=== PATIENT | female | born 1990 | race Caucasian/White ===

== ENCOUNTER 2017-04-15 07:11 | Emergency (ER) | payer MEDICAID ==
[2017-04-15 10:15] VITALS: BP 135/77
== END 2017-04-15 10:15 | disposition home or self-care (01) ==
LOC: ED 07:11
DX: B34.9 Viral infection, unspecified (principal)
CPT/HCPCS: 87804

== ENCOUNTER 2017-10-08 23:29 | Emergency (ER) | payer MEDICAID ==
[~2017-10-08] VITALS: Ht 162.6 cm; Wt 58.5 kg
[2017-10-08 23:42] VITALS: Ht 162.6 cm; Wt 58.5 kg
[2017-10-09 01:30] VITALS: BP 100/76
== END 2017-10-09 01:30 | disposition home or self-care (01) ==
LOC: ED 23:29
DX: J98.01 Acute bronchospasm (principal); R05 Cough; J00 Acute nasopharyngitis [common cold]; M79.1 Myalgia; R50.9 Fever, unspecified

== ENCOUNTER 2018-07-18 20:10 | Emergency (ER) | payer OTHER ==
[~2018-07-18] VITALS: Ht 160 cm; Wt 51.7 kg
[2018-07-18 21:09] VITALS: Ht 160 cm; Wt 51.7 kg
[2018-07-19 01:00] VITALS: BP 106/82
== END 2018-07-19 01:00 | disposition home or self-care (01) ==
LOC: ED 20:10
DX: M79.672 Pain in left foot (principal)

== ENCOUNTER 2018-08-21 13:15 | Emergency (ER) | payer OTHER ==
[~2018-08-21] VITALS: Ht 160 cm; Wt 53.5 kg
[2018-08-21 13:25] VITALS: Ht 160 cm; Wt 53.5 kg
[2018-08-21 14:30] LABS: BASOPHIL % 0.4 % (0-2); PLATELET COUNT 214 x10^3mcL (130-400); RED CELL DISTRIBUTION WIDTH 12.9 % (11.5-14.5)
[2018-08-21 18:16] VITALS: BP 92/72
== END 2018-08-21 17:50 | disposition home or self-care (01) ==
LOC: ED 13:15
PROVIDERS: Emergency Medicine
DX: N94.6 Dysmenorrhea, unspecified (principal)
CPT/HCPCS: 36415

== ENCOUNTER 2019-01-14 22:34 | Emergency (ER) | payer OTHER ==
[~2019-01-14] VITALS: Ht 160 cm; Wt 53.5 kg
[2019-01-14 22:35] VITALS: Ht 160 cm; Wt 53.5 kg
[2019-01-14 23:45] LABS: UA SPECIFIC GRAVITY >=1.030 (1.005-1.035); microscopic required? YES; urine erythrocyte NEGATIVE (NEGATIVE)
[2019-01-14 23:52] VITALS: BP 98/64
== END 2019-01-14 23:52 | disposition home or self-care (01) ==
LOC: ED 22:34
PROVIDERS: Emergency Medicine
DX: R30.0 Dysuria (principal); R10.30 Lower abdominal pain, unspecified
CPT/HCPCS: 87491; 87591

== ENCOUNTER 2019-01-19 12:37 | Emergency (ER) | payer OTHER ==
[~2019-01-19] VITALS: Ht 160 cm; Wt 54.0 kg
[2019-01-19 12:50] VITALS: Ht 160 cm; Wt 54.0 kg
[2019-01-19 15:06] VITALS: BP 112/60
== END 2019-01-19 15:06 | disposition home or self-care (01) ==
LOC: ED 12:37
DX: N30.00 Acute cystitis without hematuria (principal); Z76.0 Encounter for issue of repeat prescription

== ENCOUNTER 2019-06-03 00:36 | Emergency (ER) | payer OTHER ==
[~2019-06-03] VITALS: Ht 160 cm; Wt 54.4 kg
[2019-06-03 00:40] VITALS: Ht 160 cm; Wt 54.4 kg
[2019-06-03 05:09] VITALS: BP 101/56
== END 2019-06-03 05:09 | disposition home or self-care (01) ==
LOC: ED 00:36
DX: O26.893 Other specified pregnancy related conditions, third trimester (principal); R51 Headache; R05 Cough; Z3A.29 29 weeks gestation of pregnancy
CPT/HCPCS: G0480

== ENCOUNTER 2020-08-23 06:48 | Emergency (ER) | payer OTHER ==
[~2020-08-23] VITALS: Ht 160 cm; Wt 54.9 kg
[2020-08-23 06:54] VITALS: BP 100/59; Ht 160 cm; Wt 54.9 kg
[2020-08-23] MEDS ORDERED: CEPHALEXIN500 MG PO (07:28)
[2020-08-23] MEDS ORDERED: POLYSPORIN1 OI1 TOP (07:28)
[2020-08-23] MEDS ORDERED: APAP325 MG PO (07:28)
== END 2020-08-23 08:00 | disposition home or self-care (01) ==
LOC: ED 06:48
DX: O26.891 Other specified pregnancy related conditions, first trimester (principal); L60.0 Ingrowing nail
CPT/HCPCS: J2001